=== PATIENT | female | born 1990 | race Caucasian/White ===

== ENCOUNTER → 2021-06-19 | Outpatient (CLI) | payer OTHER ==
[2021-06-20 08:06] LABS: RUBELLA AB IGG-REFLAB 3.54 index (Immune >0.99)
== END | disposition home or self-care (01) ==
LOC: LABMN 11:53
PROVIDERS: ATTEND Internal Medicine
DX: Z02.1 Encounter for pre-employment examination (principal)
CPT/HCPCS: 86706; 86735; 86762; 86765; 86787; 36415-L1; 36415-TC